=== PATIENT | male | born 1980 | race Caucasian/White ===

== ENCOUNTER 2017-02-05 16:17 | Inpatient (IN) | payer MEDICAID, OTHER ==
[~2017-02-05] VITALS: Ht 172.7 cm; Wt 93.6 kg
[2017-02-05] MEDS ORDERED: SODIUM CHLORIDE 0.9% 1L BAG IV* STA (17:00)
[2017-02-05] MEDS ORDERED: IBUP100T46 PO (17:24)
[2017-02-05 17:35] LABS: ADD SCAN DIFF NO
[2017-02-05 17:37] LABS: BASOPHILS % 0.2 % (0.0-2.0); HEMATOCRIT 47.1 % (42.0-52.0); HEMOGLOBIN 17.1 g/dl (14.0-18.0); LYMPHOCYTES # 1.6 10^3/ul (0.8-2.9); LYMPHOCYTES % 8.7 % (15.0-51.0); MEAN CORPUSCULAR HEMOGLOBIN 32.6 pg (29.0-33.0); MEAN CORPUSCULAR HGB CONC 36.3 g/dl (32.0-37.0); MEAN CORPUSCULAR VOLUME 89.7 fl (82.0-101.0); MEAN PLATELET VOLUME 11.9 fl (7.4-10.4); MONOCYTE # 1.2 10^3/ul (0.3-0.9); MONOCYTES % 6.8 % (0.0-11.0); NEUTROPHIL # 15.3 10^3/ul (1.6-7.5); NEUTROPHILS % 83.7 % (39.0-77.0); PLATELET COUNT 252 10^3/UL (140-415); RED BLOOD COUNT 5.25 10^6/ul (4.70-6.10); RED CELL DISTRIBUTION WIDTH 12.4 % (11.5-14.5); WHITE BLOOD COUNT 18.2 10^3/ul (4.8-10.8)
--- NOTE | 2017-02-05 17:37 | RADRPT ---
PROCEDURE: Chest x-ray CLINICAL INDICATION: Chest pain TECHNIQUE: Chest single view COMPARISON: None FINDINGS: The heart is normal in size. The pulmonary vessels are normal in caliber. The lungs are clear. Th e costophrenic angles are sharp. The visualized bony thorax is unremarkable. IMPRESSION: No acute cardiopulmonary disease. RPTAT: HH .Dennis Dorado MD, Date Time Electronically viewed and signed by .Dennis Dorado MD, MD on 02/05/2017 17:37 .W/
[2017-02-05 17:54] LABS: INR 0.92; PROTIME 12.4 Sec (12.2-14.2)
[2017-02-05 17:55] LABS: PARTIAL THROMBOPLASTIN TIME 26.4 Sec (25.0-35.0)
[2017-02-05 17:57] LABS: ADD UMIC YES; UR BILIRUBIN (Dip) NEGATIVE (NEGATIVE); UR BLOOD (Dip) TRACE (NEGATIVE); UR CLARITY CLEAR (CLEAR); UR COLOR LT. YELLOW (YELLOW); UR GLUCOSE (Dip) NEGATIVE (NEGATIVE); UR KETONES (Dip) NEGATIVE (NEGATIVE); UR LEUKOCYTE ESTERASE (Dip) NEGATIVE (NEGATIVE); UR NITRITE (Dip) NEGATIVE (NEGATIVE); UR TOTAL PROTEIN (Dip) 2+ (NEGATIVE); UR UROBILINOGEN (Dip) 0.2 E.U./dL (0.1-1.0)
--- NOTE | 2017-02-05 18:00 | RADRPT ---
PROCEDURE: CT head CLINICAL INDICATION: Left-sided numbness for 1 year TECHNIQUE: Contiguous 2.5 mm axial images were obtained from the vertex to the skull base. No int ravenous contrast was administered. The calculated dose length product (DLP) = 720.23 mGy-cm. The CTDlvol = 43.58 mGy. One or more of the following dose reduction techniques were used: Automated e xposure control, adjustment of the mA and or KV according to patient size, or use of iterative recon struction technique. COMPARISON: None FINDINGS: There is no acute intracranial hemorrhage or acute territorial infarct. There is a 1.4 x 1.5 cm of low density well-defined lesion in the left suboccipital calvarium with erosion of the inner table a nd thinning and scalloping of the outer table. This likely represents a benign lesion such as a int radiploic epidermoid cyst. Also in the differential there is a eosinophilic granuloma, dermoid cyst , or fibrous dysplasia. Recommend obtaining an MRI with diffusion weighted images which would show the characteristic restricted diffusion and hyperintensity. There is no associated mass effect or e radha. No midline shift is seen. Ventricles and cisterns are normal in size and configuration. Gra y-white matter differentiation is within normal limits. There is air-fluid level in the right maxil shikha sinus. Remaining paranasal sinuses are clear. The bony calvarium is unremarkable. IMPRESSION: 1. 1.4 x 1.5 cm low-attenuation lesion in the left suboccipital calvarium/posterior fossa laterally with erosion of the inner table and scalloping of the outer table. This likely represents a intra diploic epidermoid cyst. Also in the differential is eosinophilic granuloma, hemangioma, dermoid cy st or fibrous dysplasia. This appears to have predominately benign features. Recommend obtaining a n MRI for further characterization. There is no associated mass effect or edema. 2. No other intracranial masses identified. 3. No intracranial hemorrhage or territorial infarct. 4. Air-fluid level within the right maxillary sinus suggesting acute sinusitis RPTAT: HH .Dennis Dorado MD, MD Date Time Electronically viewed and signed by .Dennis Dorado MD, on 02/05/2017 17:59 .W/
[2017-02-05 18:01] LABS: ALBUMIN 5.2 g/dl (3.3-4.9); ALBUMIN/GLOBULIN RATIO 1.4; BILIRUBIN,INDIRECT 0.5 mg/dl (0-1.1); BILIRUBIN,TOTAL 0.5 mg/dl (0.2-1.3); CALCIUM 9.8 mg/dl (8.4-10.2); CREATININE 0.72 mg/dl (0.61-1.24); POTASSIUM 3.5 mmol/L (3.5-5.1); TOTAL PROTEIN 8.9 g/dl (6.1-8.1)
[2017-02-05 18:13] LABS: TROPONIN-I 0.038 ng/ml (0.00-0.12)
[2017-02-05 18:18] LABS: URINE RBCS 0-2 /HPF (0)
[2017-02-05 18:18] LABS: T3 UPTAKE 30.6 % (23.5-40.5)
[2017-02-05] MEDS ORDERED: VANCOMYCIN 1 GM (PMX) 250 ML IVPB SCH (19:00)
[2017-02-05] MEDS ORDERED: CEFTRIAXONE 1 GM/50 ML (PMX) 50 ML IVPB ONE ×2 (19:00)
[2017-02-05] MEDS ORDERED: ONDANSETRON 4 MG INJ IV PRN (19:30)
[2017-02-05] MEDS ORDERED: ACETAMINOPHEN 325 MG TAB PO PRN ×2 (19:30→20:00)
--- NOTE | 2017-02-05 19:55 | HP ---
Date/Time of Note Date/Time of Note DATE: 02/05/17 TIME: 19:51 Assessment/Plan VTE Prophylaxis VTE Prophylaxis Intervention: anti-embolic stocking Assessment/Plan Assessment/Plan 1) SIRS - WBCs = 18 and HR = 119, no source/suspected source of infection (I think there may be something more serious going on here as patient's specific concerns are not serious and have only been present for a day. There may be some things he has not told us.) - Admit to Telemetry - Monitor - Check ESR, CRP and UDS - AM Labs: CBC, BMP - Too early for testing, but Pheochromocytoma should be considered if his BP does not control easily 2) Hypertension - Start CHING I 3) Hyperproteinemia - SPEP to make sure there is not a more serious finding 4) Abnormal Head CT - MRI Brain - Doubt the findings are related to his current symptoms of 1 day - Neuro Consult if any concerns 5) Paresthesias - Monitor for now. Neuro should address this IF they are consulted for abnormal Rad findings. HPI/ROS Admit Date/Time Admit Date/Time 02/05/17 1905 Hx of Present Illness This 36-year-old male, who has not had medical care in 10-15 years, presents with left-sided face and left neck numbness for 1 day. He says that he did not sleep at all last night because he was so bothered by the way he was feeling. During that day, he also had intermittently sweaty palms which would alternate with cold palms and with normal palms. He has also had a headache off and on. He denies vision changes. He denies physical weakness. No slurred speech or droopy eye. He wonders if the pain in his neck is from a job he had 7-10 years ago. He admits to feeling a little bit sad as his family is in [place]. [place]. He has never had anything like this before. He has never been told he has diabetes. He does not know if he has ever had high blood pressure before. He denies chest pain palpitations shortness of breath. He has no history of asthma, bronchitis or pneumonia. He denies swelling in his legs. He denies any nausea,vomiting or diarrhea. Patient states that he is here to get medical care because he has not had any for so long ROS General: Admits: Denies: Fever, Chills, Poor Appetite, Generalized Body Aches Eyes: Admits: Denies: Blurry Vision, Double Vision HENT: Admits: Denies: Ear Pain/Pressure, Runny/Stuffy Nose, Sore Throat Cardiovascular: Admits: Denies: Chest Pain, Palpitations, Leg Swelling Pulmonary: Admits: Denies: Cough, Wheeze, Shortness of Breath Gastrointestinal: Admits: Denies: Abdominal Pain, Nausea, Vomiting, Diarrhea, Blood in Stool, Black-Colored Stool Urogenital: Admits: Mild, chronic pain in left side of neck Denies: Burning with Urination, Urinary Frequency, Blood in Urine Musculoskeletal: Admits: Denies: Joint Pain, Joint Swelling, Muscle Pain, Muscle weakness Neurological: Admits: Headache, Numbness, Tingling, Denies: Dizziness, Shooting Pains Integumentary: Admits: Denies: Rash, Itch Endocrine: Admits: Denies: Excessive Thirst, Excessive Hunger, Intolerant to Cold , Intolerant to Heat Psychiatric: Admits: Depression Denies: Anxiety, PMH/Family/Social Past Medical History No DM Medical History: no pertinent history Past Surgical History LEFT ARM SURGERY Social History Alcohol Use: none Smoking Status: Current every day smoker Drug Use: none Exam/Review of Systems Vital Signs Vitals Vital Signs Date Time Temp Pulse Resp B/P Pulse Ox O2 Delivery O2 Flow Rate FiO2 02/05/17 18:52 91 20 141/99 100 Room Air 02/05/17 16:26 99.7 Exam Exam General: Overweight male, alert and oriented, in no acute distress Eyes: Sclera White, EOMI, a bit bloodshot bilaterally HENT: Normocephalic/Atraumatic, External Ears/Nose Normal, Moist Mucus Membranes Neck: Supple, Trachea Midline Cardiovascular: Normal Rate, Regular Rhythm, Normal S1 and S2, No Murmur, No Extra Sounds. Radial pulse +2/4. No pedal Edema. Pulmonary: Clear to Auscultation Bilaterally, Normal Respiratory Effort, No Rales, Rhonchi or Wheezes Gastrointestinal: Normoactive Bowel Sounds, Soft, Non-Tender/Non-Distended, No Hepatosplenomegaly Appreciated, No Pulsatile Masses Urogenital: Deferred Musculoskeletal: Normal Muscle Bulk and Tone Neurological: CN II - XII Grossly Intact, Non-Focal, Speech Normal. Sensation intact and strength +5/5 bilateral UE, including hand smash fixer. Integumentary: Normal Moisture and Temperature, Good Turgor, No Jaundice, No Rash Lymphatic: No Cervical Lymphadenopathy Psychiatric: Appropriate Mood and Affect, Good Eye Contact Labs Result Diagram: 02/05/17 1701 02/05/17 1701 Medications Medications Current Medications Medications (Trade) Dose Ordered Sig/Yaakov Route PRN Reason Start Time Stop Time Status Last Admin Dose Admin Sodium Chloride 2910 ml 2,910 ml BOLUS OVER 2 HOURS STAT IV* 02/05/17 17:00 02/05/17 17:02 DC 02/05/17 17:32 Ceftriaxone Sodium 50 ml @ 100 mls/hr ONCE ONCE IVPB 02/05/17 19:00 02/05/17 19:29 DC 02/05/17 19:09 Ceftriaxone Sodium 50 ml @ 100 mls/hr ONCE ONCE IVPB 02/05/17 19:00 02/05/17 19:29 DC 02/05/17 18:50 Vancomycin HCl (Vancocin) 250 ml @ 125 mls/hr ONCE IVPB 02/05/17 19:00 02/05/17 20:59 DC 02/05/17 19:46 Ondansetron HCl (Zofran Inj) 4 mg ER BRIDGE PRN IV NAUSEA AND/OR VOMITING 02/05/17 19:30 02/06/17 19:29 Acetaminophen (Tylenol Tab) 650 mg ER BRIDGE PRN PO MILD PAIN/FEVER 02/05/17 19:30 02/05/17 21:36 DC Labetalol HCl 20 mg 20 mg ONCE ONCE IV 02/05/17 20:00 02/05/17 20:01 DC 02/05/17 20:27 Sodium Chloride (NS) 1,000 ml @ 125 mls/hr Q8H IV 02/05/17 19:59 IV Flush (NS 3 ml) 3 ml PER PROTOCOL IV 02/05/17 20:00 Ondansetron HCl (Zofran Tab) 4 mg Q6H PRN PO NAUSEA AND/OR VOMITING 02/05/17 20:00 Nitroglycerin (Nitroglycerin (Sl Tab) 0.4 Mg) 1 tab Q5M PRN SL CHEST PAIN 02/05/17 20:00 Acetaminophen (Tylenol Tab) 650 mg Q6H PRN PO PAIN LEVEL 1-3 OR FEVER 02/05/17 20:00 Acetaminophen/ Hydrocodone Bitart ([place] (5/325)) 1 tab Q6H PRN PO PAIN LEVEL 4-6 02/05/17 20:00 Acetaminophen/ Hydrocodone Bitart ([place] (5/325)) 2 tab Q6H PRN PO PAIN LEVEL 7-10 02/05/17 20:00 Famotidine (Pepcid) 20 mg Q12 PO 02/05/17 21:00 Enoxaparin Sodium (Lovenox) 40 mg DAILY SC 02/06/17 09:00 Procedures Procedures Laboratory Tests Test 02/05/17 17:01 02/05/17 17:10 02/05/17 17:30 02/05/17 19:00 White Blood Count 18.210^3/ul Red Blood Count 5.2510^6/ul Hemoglobin 17.1g/dl Hematocrit 47.1% Mean Corpuscular Volume 89.7fl Mean Corpuscular Hemoglobin 32.6pg Mean Corpuscular Hemoglobin Concent 36.3g/dl Red Cell Distribution Width 12.4% Platelet Count 66102^3/UL Mean Platelet Volume 11.9fl Neutrophils % 83.7% Lymphocytes % 8.7% Monocytes % 6.8% Eosinophils % 0.0% Basophils % 0.2% Nucleated Red Blood Cells % 0.0/100WBC Neutrophils # 15.310^3/ul Lymphocytes # 1.610^3/ul Monocytes # 1.210^3/ul Eosinophils # 0.010^3/ul Basophils # 0.010^3/ul Nucleated Red Blood Cells # 0.010^3/ul Prothrombin Time 12.4Sec Prothrombin Time Ratio 1.0 INR International Normalized Ratio 0.92 Activated Partial Thromboplast Time 26.4Sec Sodium Level 142mmol/L Potassium Level 3.5mmol/L Chloride Level 107mmol/L Carbon Dioxide Level 23mmol/L Anion Gap 16 Blood Urea Nitrogen 10mg/dl Creatinine 0.72mg/dl Glucose Level 128mg/dl Calcium Level 9.8mg/dl Total Bilirubin 0.5mg/dl Direct Bilirubin 0.00mg/dl Indirect Bilirubin 0.5mg/dl Aspartate Amino Transf (AST/SGOT) 32IU/L Alanine Aminotransferase (ALT/SGPT) 72IU/L Alkaline Phosphatase 91IU/L Troponin I 0.038ng/ml Total Protein 8.9g/dl Albumin 5.2g/dl Globulin 3.70g/dl Albumin/Globulin Ratio 1.40 Free Thyroxine Index 2.78ug/ml Thyroxine (T4) 9.1ug/dl Triiodothyronine (T3) Uptake 30.6% Lactic Acid Level 1.4mmol/L 1.0mmol/L Urine Color LT. YELLOW Urine Clarity CLEAR Urine pH 5.5 Urine Specific [place] 1.025 Urine Ketones NEGATIVE Urine Nitrite NEGATIVE Urine Bilirubin NEGATIVE Urine Urobilinogen 0.2 E.U./dL Urine Leukocyte Esterase NEGATIVE Urine Microscopic RBC 0-2/HPF Urine Microscopic WBC 0-2/HPF Urine Hemoglobin TRACE Urine Glucose NEGATIVE% Urine Total Protein 2+ EKG: interpretations per ER Physician EKG interpretation #1: Sinus tachycardia rate of 147, left posterior fascicular block, right axis deviation, Q waves in inferolateral leads suggesting old cardiac injury, no ST or T-wave changes concerning for acute ischemia. EKG interpretation #2: Normal sinus rhythm rate of 93, right axis deviation, Q waves in inferolateral leads, no ST-T wave changes concerning for acute ischemia PROCEDURE: CT head CLINICAL INDICATION: Left-sided numbness for 1 year COMPARISON: None FINDINGS: There is no acute intracranial hemorrhage or acute territorial infarct. There is a 1.4 x 1.5 cm of low density well-defined lesion in the left suboccipital calvarium with erosion of the inner table and thinning and scalloping of the outer table. This likely represents a benign lesion such as a intradiploic epidermoid cyst. Also in the differential there is a eosinophilic granuloma, dermoid cyst, or fibrous dysplasia. Recommend obtaining an MRI with diffusion weighted images which would show the characteristic restricted diffusion and hyperintensity. There is no associated mass effect or edema. No midline shift is seen. Ventricles and cisterns are normal in size and configuration. [place]an- white matter differentiation is within normal limits. There is air-fluid level in the right maxillary sinus. Remaining paranasal sinuses are clear. The bony calvarium is unremarkable. IMPRESSION: 1. 1.4 x 1.5 cm low-attenuation lesion in the left suboccipital calvarium/ posterior fossa laterally with erosion of the inner table and scalloping of the outer table. This likely represents a intradiploic epidermoid cyst. Also in the differential is eosinophilic granuloma, hemangioma, dermoid cyst or fibrous dysplasia. This appears to have predominately benign features. Recommend obtaining an MRI for further characterization. There is no associated mass effect or edema. 2. No other intracranial masses identified. 3. No intracranial hemorrhage or territorial infarct. 4. Air-fluid level within the right maxillary sinus suggesting acute sinusitis PROCEDURE: Chest x-ray CLINICAL INDICATION: Chest pain TECHNIQUE: Chest single view COMPARISON: None FINDINGS: The heart is normal in size. The pulmonary vessels are normal in caliber. The lungs are clear. The costophrenic angles are sharp. The visualized bony thorax is unremarkable. IMPRESSION: No acute cardiopulmonary disease. KESHA THOMPSON DO Feb 05, 2017 19:55 PROCEDURE: Chest x-ray CLINICAL INDICATION: Chest pain TECHNIQUE: Chest single view COMPARISON: None FINDINGS: The heart is normal in size. The pulmonary vessels are normal in caliber. The lungs are clear. The costophrenic angles are sharp. The visualized bony thorax is unremarkable.
[2017-02-05] MEDS ORDERED: HYDROCODONE/APAP (5/325) TAB PO PRN ×2 (20:00)
[2017-02-05] MEDS ORDERED: ONDANSETRON 4 MG TAB PO PRN (20:00)
[2017-02-05] MEDS ORDERED: NACL 0.9% 3 ML SYG IV SCH (20:00)
[2017-02-05] MEDS ORDERED: LABETALOL HCL 20MG INJ IV ONE (20:00)
[2017-02-05] MEDS ORDERED: NITROGLYCERIN (SL) 0.4 MG TAB SL PRN (20:00)
--- NOTE | 2017-02-05 21:30 | ERA ---
ER Documentation Chief Complaint Date/Time DATE: 02/05/17 TIME: 21:26 Chief Complaint left facial numbness x 1 year, no new symptoms, no neuro deficits HPI 36-year-old male presents emergency room for left face and neck numbness for a year. Also states that he has chest pain along his left chest. Outside fevers and chills lately. Smarting he was sweating profusely and felt ill. He has not seen a doctor for greater than a decade. He was in [facility] years ago he did have some minor surgery for a stone that was on one side of his neck. He does not remember if this was a salivary duct stone and does not murmur which side of the neck it was on. He denies dysuria. States he has occasional cough ROS All systems reviewed and are negative except as per history of present illness. Medications Home Meds Reported Medications Ibuprofen* (Ibuprofen*) 100 Mg Tab.chew, 200 MG PO Q6 for PAIN, TAB.CHEW 02/05/17 Allergies Allergies: Coded Allergies: No Known Allergy (Unverified , 02/05/17) PMhx/Soc Medical and Surgical Hx: pt denies Medical Hx History of Surgery: Yes (LEFT ARM SURGERY) Anesthesia Reaction: No Hx Neurological Disorder: No Hx Respiratory Disorders: No Hx Cardiac Disorders: No Hx Psychiatric Problems: No Hx Miscellaneous Medical Probl: No Hx Alcohol Use: No Hx Substance Use: No Hx Tobacco Use: No Smoking Status: Unknown if ever smoked Physical Exam Vitals Vital Signs Date Time Temp Pulse Resp B/P Pulse Ox O2 Delivery O2 Flow Rate FiO2 02/05/17 18:52 91 20 141/99 100 Room Air 02/05/17 16:26 99.7 119 20 181/96 99 Physical Exam Const: [] Mild- distress, appears uncomfortable Head: Atraumatic Eyes: Normal Conjunctiva ENT: Normal External Ears, Nose and Mouth. Oropharynx within normal limits, to better membranes within normal limits. Mucous membranes of the mouth slightly dry. Neck: Full range of motion..~ No meningismus. Resp: Clear to auscultation bilaterally Cardio: [place] tachycardia, regular,, no murmurs Abd: Soft, non tender, non distended. Normal bowel sounds Skin: No petechiae or rashes Back: No midline or flank tenderness Ext: No cyanosis, or edema Neur: Awake and alert and oriented 3, cranial nerves II through XII intact, no cerebellar deficits, normal gait, sensation intact to left face and neck and affected area however says it feels different than the right. Psych: Normal Mood and Affect Result Diagram: 02/05/17 1701 02/05/17 1701 Results 24 hrs Laboratory Tests Test 02/05/17 17:01 02/05/17 17:10 02/05/17 17:30 02/05/17 19:00 White Blood Count 18.210^3/ul Red Blood Count 5.2510^6/ul Hemoglobin 17.1g/dl Hematocrit 47.1% Mean Corpuscular Volume 89.7fl Mean Corpuscular Hemoglobin 32.6pg Mean Corpuscular Hemoglobin Concent 36.3g/dl Red Cell Distribution Width 12.4% Platelet Count 27212^3/UL Mean Platelet Volume 11.9fl Neutrophils % 83.7% Lymphocytes % 8.7% Monocytes % 6.8% Eosinophils % 0.0% Basophils % 0.2% Nucleated Red Blood Cells % 0.0/100WBC Neutrophils # 15.310^3/ul Lymphocytes # 1.610^3/ul Monocytes # 1.210^3/ul Eosinophils # 0.010^3/ul Basophils # 0.010^3/ul Nucleated Red Blood Cells # 0.010^3/ul Prothrombin Time 12.4Sec Prothrombin Time Ratio 1.0 INR International Normalized Ratio 0.92 Activated Partial Thromboplast Time 26.4Sec Sodium Level 142mmol/L Potassium Level 3.5mmol/L Chloride Level 107mmol/L Carbon Dioxide Level 23mmol/L Anion Gap 16 Blood Urea Nitrogen 10mg/dl Creatinine 0.72mg/dl Glucose Level 128mg/dl Calcium Level 9.8mg/dl Total Bilirubin 0.5mg/dl Direct Bilirubin 0.00mg/dl Indirect Bilirubin 0.5mg/dl Aspartate Amino Transf (AST/SGOT) 32IU/L Alanine Aminotransferase (ALT/SGPT) 72IU/L Alkaline Phosphatase 91IU/L Troponin I 0.038ng/ml Total Protein 8.9g/dl Albumin 5.2g/dl Globulin 3.70g/dl Albumin/Globulin Ratio 1.40 Free Thyroxine Index 2.78ug/ml Thyroxine (T4) 9.1ug/dl Triiodothyronine (T3) Uptake 30.6% Lactic Acid Level 1.4mmol/L 1.0mmol/L Urine Color LT. YELLOW Urine Clarity CLEAR Urine pH 5.5 Urine Specific [place] 1.025 Urine Ketones NEGATIVE Urine Nitrite NEGATIVE Urine Bilirubin NEGATIVE Urine Urobilinogen 0.2 E.U./dL Urine Leukocyte Esterase NEGATIVE Urine Microscopic RBC 0-2/HPF Urine Microscopic WBC 0-2/HPF Urine Hemoglobin TRACE Urine Glucose NEGATIVE% Urine Total Protein 2+ Current Medications Medications (Trade) Dose Ordered Sig/Yaakov Route PRN Reason Start Time Stop Time Status Last Admin Dose Admin Sodium Chloride 2910 ml 2,910 ml BOLUS OVER 2 HOURS STAT IV* 02/05/17 17:00 02/05/17 17:02 DC 02/05/17 17:32 Ceftriaxone Sodium 50 ml @ 100 mls/hr ONCE ONCE IVPB 02/05/17 19:00 02/05/17 19:29 DC 02/05/17 19:09 Ceftriaxone Sodium 50 ml @ 100 mls/hr ONCE ONCE IVPB 02/05/17 19:00 02/05/17 19:29 DC 02/05/17 18:50 Vancomycin HCl (Vancocin) 250 ml @ 125 mls/hr ONCE IVPB 02/05/17 19:00 02/05/17 20:59 DC 02/05/17 19:46 Ondansetron HCl (Zofran Inj) 4 mg ER BRIDGE PRN IV NAUSEA AND/OR VOMITING 02/05/17 19:30 02/06/17 19:29 Acetaminophen (Tylenol Tab) 650 mg ER BRIDGE PRN PO MILD PAIN/FEVER 02/05/17 19:30 02/05/17 21:36 DC Labetalol HCl 20 mg 20 mg ONCE ONCE IV 02/05/17 20:00 02/05/17 20:01 DC 02/05/17 20:27 Sodium Chloride (NS) 1,000 ml @ 125 mls/hr Q8H IV 02/05/17 19:59 IV Flush (NS 3 ml) 3 ml PER PROTOCOL IV 02/05/17 20:00 Ondansetron HCl (Zofran Tab) 4 mg Q6H PRN PO NAUSEA AND/OR VOMITING 02/05/17 20:00 Nitroglycerin (Nitroglycerin (Sl Tab) 0.4 Mg) 1 tab Q5M PRN SL CHEST PAIN 02/05/17 20:00 Acetaminophen (Tylenol Tab) 650 mg Q6H PRN PO PAIN LEVEL 1-3 OR FEVER 02/05/17 20:00 Acetaminophen/ Hydrocodone Bitart ([place] (5/325)) 1 tab Q6H PRN PO PAIN LEVEL 4-6 02/05/17 20:00 Acetaminophen/ Hydrocodone Bitart ([place] (5/325)) 2 tab Q6H PRN PO PAIN LEVEL 7-10 02/05/17 20:00 Famotidine (Pepcid) 20 mg Q12 PO 02/05/17 21:00 Enoxaparin Sodium (Lovenox) 40 mg DAILY SC 02/06/17 09:00 Procedures/MDM Sepsis of unknown origin and chest pain as well as newly discovered brain lesion.. Patient initially had a heart rate approaching 150. Was given 30 mL/ kg of IV fluid and septic workup was performed showing elevated white blood cell count of 18.2. Patient reported having fevers and chills lately with sweats this morning. Also had occasional cough but denies any hemoptysis. Also reports facial numbness times one year. He states that almost all of his symptoms been going on for a full year. He does not know of any cardiac events he is her head however is inferolateral Q waves suggesting he has had myocardial injury in the past. Chest pain with no acute findings of ischemia. Patient was given Rocephin 2 g as well as aspirin. His also given vancomycin. Meningitis seems less likely am unable to perform a lumbar puncture because of patient's new brain tumor. I spoke with Dr. Singh, neurosurgery, regarding the CT findings of her brain lesion. He believes benign and not actually a cerebral lesion but for further evaluation. Spoke with Dr. Olvera who is going to admit the patient to telemetry for further monitoring and workup. EKG interpretation #1: Sinus tachycardia rate of 147, left posterior fascicular block, right axis deviation, Q waves in inferolateral leads suggesting old cardiac injury, no ST or T-wave changes concerning for acute ischemia. EKG interpretation #2: Normal sinus rhythm rate of 93, right axis deviation, Q waves in inferolateral leads, no ST-T wave changes concerning for acute ischemia monitoring analyst interpretation: Initial sinus tachycardia gradually transition to normal sinus rhythm. No other arrhythmias Chest x-ray interpretation: No acute process, I see no infiltrates, no pneumothorax, no widened mediastinum, no pulmonary edema, no fractures CT brain interpretation: No acute process, no hemorrhage no mass effect no midline shift no skull fracture. There is present today small left suboccipital lesion with a most likely benign appearance according to radiologist. Critical care time 36 minutes: This includes treatment of patient with likely sepsis, regimen unstable vital signs, antibiotic administration, chart review, multiple visits the patient's bedside to reassess his cardio dynamic status and neuro status, discussion with patient admitting doctor and neurosurgeon, this is not including any billable procedures. Departure Diagnosis: Primary Impression: Sepsis Additional Impressions: Dehydration Brain lesion Chest pain Condition: Serious ANGELICA ROLAND DO Feb 05, 2017 21:30
[2017-02-05] MEDS ORDERED: ASPIRIN 325 MG TAB PO ONE (22:00)
[2017-02-05 23:25] VITALS: TEMP 98.6
--- NOTE | 2017-02-05 23:36 | RADRPT ---
PROCEDURE: MRI Brain with and without contrast. CLINICAL INDICATION: : Follow-up left calvarial lesion TECHNIQUE: A limited "brain lab " MRI of the brain was performed on a high-resolution [employer] n 3.0 [place] MRI scanner utilizing the following sequences: Axial T1 fat and pre and postcontrast radha ging through the entire brain is performed after 10 cc of Magnevist were given intravenously withou t complication. COMPARISON: CT brain 02/05/2017 FINDINGS: Again noted is the left expansile calvarial lesion at the left occipital mastoid suture which measur es approximately 1.9 cm AP by 1.5 cm in transverse dimensions. No evidence for appreciable enhancem ent is noted following contrast administration. In addition to the differential previously describe d on CT in giant arachnoid granulation is another consideration and dedicated complete MR imaging wi th diffusion weighted sequences contrast is recommended. The visualized imaged portions of the scalp and calvarium are otherwise normal. The bilateral orbit s are normal. The bilateral paranasal sinuses demonstrate mild chronic mucosal thickening of the bi lateral ethmoid and maxillary sinuses. The air-fluid levels in the right maxillary sinus are is nor mal. No evidence for signal abnormalities are noted in the brain parenchyma. No midline shift or h erniation is present. IMPRESSION: 1. Left occipital mastoid non-enhancing calvarial lesion measuring 1.9 cm AP by 1.5 cm in transvers e dimensions. Differential diagnosis includes a giant arachnoid granulation and recommend dedicated complete MRI with diffusion and contrast imaging and MR venogram to further evaluate. 2. Acute right maxillary sinus disease superimposed on chronic pansinusitis A call report was made to Hammad Nuñez at 02/05/2017 11:35:46 PM following the completion of the ex amination by the undersigned. RPTAT: HDC .Caty Jaimes MD, MD Date Time Electronically viewed and signed by .Caty Jaimes MD, MD on 02/05/2017 23:36 .C/
[2017-02-05 23:45] VITALS: BP 174/104; PULSE 67; RESP 18
[2017-02-05 23:51] VITALS: Ht 172.7 cm; Wt 93.6 kg
[2017-02-06] VITALS (11 sets, daily range): BP systolic 120–161; BP diastolic 71–105; PULSE 59–83; RESP 16–20
[2017-02-06] MEDS: FAMOTIDINE 20 MG TAB PO SCH ×3 (00:43→20:05)
[2017-02-06] MEDS: SOD CHLORIDE 0.9% 1,000 ML IV SCH ×4 (00:44→20:05)
[2017-02-06 06:06] LABS: ADD SCAN DIFF NO
[2017-02-06 06:38] LABS: CALCIUM 8.9 mg/dl (8.4-10.2); CHOL/HDL RATIO 5.8 RATIO; CREATININE 0.63 mg/dl (0.61-1.24); POTASSIUM 3.8 mmol/L (3.5-5.1)
[2017-02-06] MEDS: ENOXAPARIN 40 MG/0.4 ML SYG SC SCH (08:25)
[2017-02-06] MEDS ORDERED: LISINOPRIL 20 MG TAB PO SCH (09:00)
--- NOTE | 2017-02-06 09:35 | RADRPT ---
Vent Rate: 60 bpm RR Interval: 0 msec OR Interval: 128 msec QRS Duration: 90 msec QT Interval: 450 msec QTC Interval: 450 msec P-R-T [place]: 57 - 70 - 55 degrees Normal sinus rhythm Normal ECG Electronically Signed By: Pola Addison [id number]
[2017-02-06 11:44] LABS: BASOPHIL # 0.1 10^3/ul (0.0-0.1); BASOPHILS % 0.5 % (0.0-2.0); EOSINOPHILS # 0.2 10^3/ul (0.0-0.5); EOSINOPHILS % 1.5 % (0.0-7.0); HEMATOCRIT 42.7 % (42.0-52.0); HEMOGLOBIN 14.5 g/dl (14.0-18.0); LYMPHOCYTES # 2.5 10^3/ul (0.8-2.9); LYMPHOCYTES % 23.2 % (15.0-51.0); MEAN CORPUSCULAR HEMOGLOBIN 32.2 pg (29.0-33.0); MEAN CORPUSCULAR VOLUME 94.7 fl (82.0-101.0); MEAN PLATELET VOLUME 12.8 fl (7.4-10.4); MONOCYTE # 0.8 10^3/ul (0.3-0.9); MONOCYTES % 7.5 % (0.0-11.0); NEUTROPHILS % 66.8 % (39.0-77.0); PLATELET COUNT 220 10^3/UL (140-415); RED BLOOD COUNT 4.51 10^6/ul (4.70-6.10); WHITE BLOOD COUNT 10.5 10^3/ul (4.8-10.8)
--- NOTE | 2017-02-06 11:50 | PN ---
Date/Time of Note Date/Time of Note DATE: 02/06/17 TIME: 11:45 Assessment/Plan VTE Prophylaxis VTE Prophylaxis Intervention: SCD's Lines/Catheters IV Catheter Type (from Nrs): Peripheral IV Urinary Cath still in place: No Assessment/Plan Assessment/Plan 1. SIRS - ? source, ? Sinusitis 2. Uncontrolled Hypertension: mildly improved 3. Chest pain r/o ACS 4. Brain mass - Left occipital mastoid non-enhancing calvarial lesion measuring 1.9 cm by 1.5 cm 5. Paresthesias 6. Hyperproteinemia PLAN: * Complete ACS r/o and f/u 2D echo * Increase dose of lisinopril and add 2nd agent if indicated * Commence oral abx for treatment of sinusitis and f/u WBC count today * f/u MRI venogram findings and neurosurgical final recs * Await neurology recs and review * Supportive care Subjective 24 Hr Interval Summary Free Text/Dictation patient feels better no more headaches or chest pains or paresthesias Exam/Review of Systems Vital Signs Vitals Vital Signs Date Time Temp Pulse Resp B/P Pulse Ox O2 Delivery O2 Flow Rate FiO2 02/06/17 11:07 98.0 65 16 153/94 96 02/05/17 23:45 Room Air Intake and Output 02/05/17 02/05/17 02/06/17 15:00 23:00 07:00 Intake Total 2350 ml 1000 ml Balance 2350 ml 1000 ml Exam Constitutional: alert, oriented Psych: nl mood/affect Head: atraumatic, normocephalic Eyes: PERRL ENMT: mucosa pink and moist Neck: supple Respiratory: clear to auscultation Cardiovascular: regular rate and rhythm, No murmurs/extra sounds Gastrointestinal: bowel sounds, non-tender, soft Extremities: No edema Neurological: nl mental status, nl speech, nl strength, No confused, No focal weakness Results Result Diagram: 02/05/17 1701 02/06/17 0530 Results 24 hrs Laboratory Tests Test 02/05/17 17:01 02/05/17 17:10 02/05/17 17:30 02/05/17 19:00 White Blood Count 18.2 H Red Blood Count 5.25 Hemoglobin 17.1 Hematocrit 47.1 Mean Corpuscular Volume 89.7 Mean Corpuscular Hemoglobin 32.6 Mean Corpuscular Hemoglobin Concent 36.3 Red Cell Distribution Width 12.4 Platelet Count 252 Mean Platelet Volume 11.9 H Neutrophils % 83.7 H Lymphocytes % 8.7 L Monocytes % 6.8 Eosinophils % 0.0 Basophils % 0.2 Nucleated Red Blood Cells % 0.0 Neutrophils # 15.3 H Lymphocytes # 1.6 Monocytes # 1.2 H Eosinophils # 0.0 Basophils # 0.0 Nucleated Red Blood Cells # 0.0 Prothrombin Time 12.4 Prothrombin Time Ratio 1.0 INR International Normalized Ratio 0.92 Activated Partial Thromboplast Time 26.4 Sodium Level 142 Potassium Level 3.5 Chloride Level 107 Carbon Dioxide Level 23 Anion Gap 16 Blood Urea Nitrogen 10 Creatinine 0.72 Glucose Level 128 Calcium Level 9.8 Total Bilirubin 0.5 Direct Bilirubin 0.00 Indirect Bilirubin 0.5 Aspartate Amino Transf (AST/SGOT) 32 Alanine Aminotransferase (ALT/SGPT) 72 H Alkaline Phosphatase 91 Troponin I 0.038 Total Protein 8.9 H Albumin 5.2 H Globulin 3.70 H Albumin/Globulin Ratio 1.40 Free Thyroxine Index 2.78 Thyroxine (T4) 9.1 Triiodothyronine (T3) Uptake 30.6 Lactic Acid Level 1.4 1.0 Urine Color LT. YELLOW Urine Clarity CLEAR Urine pH 5.5 Urine Specific [place] 1.025 Urine Ketones NEGATIVE Urine Nitrite NEGATIVE Urine Bilirubin NEGATIVE Urine Urobilinogen 0.2 E.U./dL Urine Leukocyte Esterase NEGATIVE Urine Microscopic RBC 0-2 Urine Microscopic WBC 0-2 Urine Hemoglobin TRACE Urine Glucose NEGATIVE Urine Total Protein 2+ H Thyroid Stimulating Hormone (TSH) 1.900 Test 02/05/17 21:30 02/06/17 05:30 Lactic Acid Level 1.1 Sodium Level 140 Potassium Level 3.8 Chloride Level 111 H Carbon Dioxide Level 25 Anion Gap 8 # Blood Urea Nitrogen 8 Creatinine 0.63 Glucose Level 108 Calcium Level 8.9 Triglycerides Level 84 Cholesterol Level 180 LDL Cholesterol, Calculated 132 HDL Cholesterol 31 Cholesterol/HDL Ratio 5.8 Medications Medications Current Medications Sodium Chloride (NS) 1,000 ml @ 125 mls/hr Q8H IV Last administered on t 05:32; Admin Dose 125 MLS/HR; Start 02/05/17 at 19:59 Ondansetron HCl (Zofran Tab) 4 mg Q6H PRN PO NAUSEA AND/OR VOMITING; Start at 20:00 Nitroglycerin (Nitroglycerin (Sl Tab) 0.4 Mg) 1 tab Q5M PRN SL CHEST PAIN; Start 02/05/17 at 20:00 Acetaminophen (Tylenol Tab) 650 mg Q6H PRN PO PAIN LEVEL 1-3 OR FEVER; Start at 20:00 Acetaminophen/ Hydrocodone Bitart ([place] (5/325)) 1 tab Q6H PRN PO PAIN LEVEL 4 -6; Start 02/05/17 at 20:00 Acetaminophen/ Hydrocodone Bitart ([place] (5/325)) 2 tab Q6H PRN PO PAIN LEVEL 7 -10; Start 02/05/17 at 20:00 Famotidine (Pepcid) 20 mg Q12 PO Last administered on 02/06/17 08:23; Admin Dose 20 MG; Start 02/05/17 at 21:00 Enoxaparin Sodium (Lovenox) 40 mg DAILY SC Last administered on 02/06/17 08:25 ; Admin Dose 40 MG; Start 02/06/17 at 09:00 Lisinopril (Zestril) 20 mg DAILY PO Last administered on 02/06/17 08:23; Admin Dose 20 MG; Start 02/06/17 at 09:00 Aspirin (Halfprin) 81 mg DAILY PO ; Start 02/06/17 at 12:00; Status TATA ROMO Feb 06, 2017 11:50
[2017-02-06] MEDS ORDERED: LISINOPRIL 20 MG TAB PO ONE (12:00)
[2017-02-06] MEDS: ASPIRIN (EC) 81 MG TAB PO SCH (13:02)
[2017-02-06] MEDS: AMOXICILLIN/CLAV 875 MG TAB PO SCH ×2 (13:54→20:04)
[2017-02-06 14:38] LABS: TROPONIN-I 0.012 ng/ml (0.00-0.12)
[2017-02-06 14:46] LABS: CREATINE KINASE 192 IU/L (23-200)
[2017-02-06 14:53] LABS: CK-MB 3.05 ng/ml (0.0-2.4)
[2017-02-06 15:02] LABS: CK-MB 2.39 ng/ml (0.0-2.4); TROPONIN-I < 0.012 ng/ml (0.00-0.12)
--- NOTE | 2017-02-06 17:42 | RADRPT ---
PROCEDURE: MR Brain without contrast. CLINICAL INDICATION: 36-year-old male with mass lesion in the left temporal region. TECHNIQUE: An MRI of the brain was performed without utilizing the following sequences: Sagittal T1 weighted, sagittal FLAIR, axial T1, axial FLAIR, axial T2 weighted, axial diffusion weighted, axi al ADC mapping. Images were reviewed on a PACS workstation. COMPARISON: No prior studies are available for comparison. FINDINGS: Diffusion weighted sequences demonstrate no evidence of acute lacunar or lobar infarction. There is redemonstration of the well-circumscribed lesion in the rest of the portion of the left temporal lo be measuring 1.9 X 1.7 cm. There is T2 hyperintensity, with isointense FLAIR / T1 signal. The diff usion weighted sequences, there is no diffusion restriction within the mass lesion. The underlying brain parenchyma is normal. There is no significant edema in the adjacent temporal/occipital bones. There is no intracranial hemorrhage, extra-axial fluid collection, mass lesion, midline shift or hy drocephalous. The cerebral sulci, lateral and third ventricles are normal in size and configuration . The basal cisterns are patent. The signal intensity is normal throughout the cerebrum, brain stem and cerebellum. Normal flow voids are visible the proximal intracranial arteries and dural sinuses , indicating patency. The midline structures are intact. There are moderate inflammatory changes of the bilateral ethmoid air cells and right maxillary sinus . The mastoid air cells and middle ear cavities are normally aerated. The orbits, calvarium and ex tracranial soft tissues are normal in appearance. The cerebellopontine angles are normal. No eviden ce of internal acoustic canal or cerebellopontine angle mass. IMPRESSION: 1. 1.9 x 1.7 cm diffusion restricting, fluid signal intensity, nonenhancing lesion involving the lef t mastoid portion of the temporal bone. On the prior CT examination on 02/05/2017 this demonstrated well-circumscribed, sclerotic margins with location adjacent to the lambdoid suture in this region. 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 No malignant characteristics at this time. Short interval follow-up would be helpful to confirm stability. 2. No acute intracranial abnormality. No intracranial hemorrhage, enhancing mass lesion, infarctio n or hydrocephalous. 3. Moderate inflammatory changes of the paranasal sinuses. RPTAT: HGAS .Jose Enrique Vinson MD, MD Date Time Electronically viewed and signed by .Jose Enrique Vinson MD, MD on 02/06/2017 17:42 .S/
[2017-02-06 20:37] LABS: BARBITURATES Negative (NEGATIVE); BENZODIAZEPINES Negative (NEGATIVE); COCAINE Negative (NEGATIVE); OPIATES Negative (NEGATIVE)
[2017-02-06 20:41] LABS: CANNABINOIDS Positive (NEGATIVE)
[2017-02-07] VITALS (7 sets, daily range): BP systolic 116–129; BP diastolic 83–89; PULSE 52–73; RESP 20
[2017-02-07] MEDS: SOD CHLORIDE 0.9% 1,000 ML IV SCH ×2 (02:48→11:59)
[2017-02-07 04:48] LABS: PROTEIN, TOTAL 6.2 g/dL (6.1-8.1)
[2017-02-07] MEDS ORDERED: LISINOPRIL 20 MG TAB PO SCH (09:00)
[2017-02-07] MEDS: FAMOTIDINE 20 MG TAB PO SCH (09:20)
[2017-02-07] MEDS: ASPIRIN (EC) 81 MG TAB PO SCH (09:20)
[2017-02-07] MEDS: AMOXICILLIN/CLAV 875 MG TAB PO SCH (09:20)
[2017-02-07] MEDS: ENOXAPARIN 40 MG/0.4 ML SYG SC SCH (09:24)
[2017-02-07] MEDS ORDERED: ASPI-664 PO (10:53)
[2017-02-07] MEDS ORDERED: AMOX1TAB10 PO (10:53)
[2017-02-07] MEDS ORDERED: LISI20TA11 PO (10:53)
--- NOTE | 2017-02-07 12:25 | PDOCDIS ---
Discharge Instructions DIAGNOSIS Discharge Diagnosis: brain mass, SIRS CONDITION Patient Condition: Stable HOME CARE INSTRUCTIONS: Special Diet: regular ACTIVITY: Activity Restrictions: Slowly Increase Activity Rest between Activity FOLLOW UP/APPOINTMENTS Appointments Followup with your primary doctor within the next 1-2 weeks. You need serial CTS to ensure your barin mass is not increasing in size, please have your primary doctor arrange this. If you don't have one please let someone know, we can give you resources that may help you pick one. You may call Dr Ivan Antonio's office. he's accepting new patients Name, Degree: Ivan Antonio MD Specialty: Internal Medicine Comments: Office Address: [address] [place] [address] [place] [address] Office Office You may also call your insurance company to assign one to you. Review your medication list with your nurse before leaving and if you need new prescriptions please let your nurse know. I may have made changes to your home medications or given you new prescriptions , please let your primary doctor know as well. Stay compliant with your medications and report any side effects to your PCP or pharmacist. Return to the ER if you have any concerns and cannot reach your doctors or call your insurance company, they usually have a nurse that can help you. OTHER ORDERS: Other Orders: Please stop smoking. If you have already stopped, Good for you!!!. It is however an ongoing process. If you need help or resources, please let someone know before you leave. We are here to help you. It has been associated with a lot of disease processes and is not favorable for healing. SCHOOL/WORK RELEASE May return to School/Work on: Feb 08, 2017 May return to School/Work with: No Restrictions School/Work Release Comment: Please excuse patient from work from 02/05/17 till 02/08/17. Thanks! TATA MARTÍNEZ Feb 07, 2017 12:25
--- NOTE | 2017-02-07 12:56 | CONS ---
Date/Time of Note Date/Time of Note DATE: 02/07/17 TIME: 12:53 Assessment/Plan Assessment/Plan Additional Assessment/Plan Full neuroloy consulation dictated TIA likely secondary to amphetamines, please obtain carotid US, OK to d/c home then. Also Ill start lipitor, cont ASA, lisinopril ADEOLA STRANGE MD Feb 07, 2017 12:56
--- NOTE | 2017-02-07 13:44 | CONS ---
DATE OF ADMISSION: 02/05/2017 DATE OF CONSULTATION: TYPE OF CONSULTATION: Neurology Thank you, Dr. Roach, for your kind referral for evaluation of transient left-sided numbness as well a s calvarium mass. HISTORY OF PRESENT ILLNESS: The patient is a 36-year-old gentleman who was admitted the day before yesterday with complaints of left facial numbness, numbness in the part of the occipital scalp, neck , and a small area underarm. He stated that he was also having some chest pain and discomfort. He was complaining of fevers and chills lately and felt ill. His numbness lasted less than 1 day. He had CAT scan of the head followed by MRI with and without contrast, which shows absence of acute abn ormality, no strokes, but a small about 1.9 x 1.7 cm fluid signal intensity nonenhancing lesion in t he left mastoid portion of the temporal bone, most suggestive benign epidermoid cyst with no maligna nt characteristics at this time according to the radiologist's report. Short interval followup woul d be helpful to confirm stability according to the note. Chest x-ray was normal. He had EKG showin g sinus rhythm. Labs show normal basic metabolic panel, total protein 8.9, albumin 5.2, BUN 10, cre atinine 0.72. Serum protein electrophoresis was also sent out, but not back yet. Normal TSH. WBC count on admission 18, but next day was 10. Normal PT, PTT. His tox screen was positive for amphet amines and marijuana. Urinalysis 2+ protein, otherwise negative. Blood and urine cultures are negative so far. He was put on Zestril and Augmentin as well as aspiri n and Pepcid. MEDICATIONS: No medications prior to admission ALLERGIES: NONE. SOCIAL HISTORY: Every day smoker, also smokes marijuana. Denied any other drug use. When confront ed with drug screen result, the patient stated that probably he was using the wrong pipe but regular ly he does not use amphetamines. FAMILY HISTORY: Noncontributory. REVIEW OF SYSTEMS: All pertinent positives included in the above history of present illness. No co mplaints currently. PHYSICAL EXAMINATION: VITAL SIGNS: Today, temperature 98.0, pulse 73, respirations 20, blood pressure 129/84. GENERAL: Not in acute distress, lying in bed. HEENT: Normocephalic, atraumatic head. NECK: No carotid bruits. No thyromegaly. LUNGS: Clear to auscultation bilaterally. CARDIAC: Normal cardiac rhythm and sounds. ABDOMEN: Soft, nontender. EXTREMITIES: No cyanosis, clubbing or edema. NEUROLOGIC: He is awake, alert, and oriented x3 with fluent speech. Cranial nerve examination show s intact visual kennedy bilaterally. Pupils round, reactive to light from 4 to 2 mm bilaterally. Ex traocular movements intact without nystagmus. Symmetrical face. Preserved facial strength and sens ation. Tongue is in midline. Palate elevates symmetrically. Motor strength examination preserved in all extremities. Normal bulk, tone, and strength. Sensory examination intact to light touch and pain. Deep tendon reflexes 2+ throughout. Downgoing toes bilaterally with preserved coordination in all extremities. No dysmetria or tremor. Gait was not assessed. According to the patient, he h as no problems ambulating. IMPRESSION: Transient left facial and neck numbness, resolved. Etiology ? possible transient ische fide attack, likely relates to use of amphetamines. The patient was advised on cessation. He was al so diagnosed with hypertension and put on antihypertensive medication as well as baby aspirin, it is okay to continue. Incidental findings of mastoid portion of the left temporal bone epidermoid cyst. Per radiologist's suggestion, followup CAT scan to evaluate stability recommended. Probably it is reasonable to obta in within 2 to 3 months. The patient presented with possible systemic inflammatory response syndrom e with elevated WBC count and tachycardia, which seemed to resolve on antibiotics. I do not see jitendra t he had carotid ultrasound. I think it is reasonable to obtain prior to his discharge, though I do ubt that he has any abnormality given his age. Also, I forgot to mention that lipid profile shows cholesterol 180, LDL 132. I will put the patient on a small dose of Lipitor as well. It is okay fo r patient to be discharged home. Dictated By: ADEOLA MEDRANO/TAL Conf#: [id number] DID#: [id number]
--- NOTE | 2017-02-07 18:18 | CONS ---
DATE OF ADMISSION: 02/05/2017 DATE OF CONSULTATION: 02/06/2017 CONSULTING SERVICE: Neurosurgery REQUESTING PHYSICIAN: Dr. Ozzy Mirza with the emergency department and Dr. Missy Olvera. HISTORY OF PRESENT ILLNESS: This is a 36-year-old male in overall good health, who presented to the emergency department with a 1-day history of left-sided facial pain and transient numbness and havi ng some soreness over the left lateral part of his neck and the trapezius, scalene and pectoralis ar ea. The patient describes the pain by the pectoralis area as more being that of soreness rather jitendra n electric pain or pressure. The patient denies any loss of consciousness or convulsions. He also denies any decreased vision or diplopia. He denies any weakness or numbness of his upper or lower e xtremities. He denies any difficulty with his gait or balance. He denies bowel or bladder dysfunct ion. The patient at the time of presentation had some routine labs that showed elevated white blood cell count and it appears that as part of his workup for his new onset left facial pain, a CT of th e head was ordered that showed a possible osteolytic skull lesion and neurosurgery was being consult ed for that. PAST MEDICAL HISTORY: None. The patient has not even seen a doctor for the past 10 to 15 years. PAST SURGICAL HISTORY: Left arm surgery. FAMILY HISTORY: Noncontributory. SOCIAL HISTORY: The patient denies consuming alcoholic beverages or use of illicit or recreational drugs. He says that he smokes cigarettes every day for the past number of years ALLERGIES: NO KNOWN DRUG ALLERGIES. REVIEW OF SYSTEMS: Please see above. The patient denies chest pain or shortness of breath. PHYSICAL EXAMINATION: The patient is seen at bedside. He is more comfortable speaking Macedonian, alt toño he can say and understand some [place]ian. He is awake, alert, oriented x4. His language is flu ent. His face is symmetric. Tongue is midline. Extraocular movements are intact. Pupils are equa lly round and reactive to light. Corneal reflex is present bilaterally. The patient has full sensa tion along the V1, V2 and V3 distributions bilaterally. There is no dysmetria. Muscle bulk and tone is normal bilateral upper and lower extremities. Sensation to light touch is grossly preserved vamshi ateral upper and lower extremities. Deep tendon reflexes are 1+ bilateral upper and lower extremiti es. Motor strength is 5/5 bilateral upper and lower extremities. The patient's gait and tandem gai t is normal. IMAGING: The patient has received CT of the head without contrast as well as a stereotactic series MRI that only includes the T1 with and without contrast. There is no T2 or diffusion-weighted imagi ng sequences noted. The imaging studies show a small area of the osteolytic lesion in the left retr omastoid area by the posterior fossa. The MRI shows a small rounded, well-circumscribed, nonenhanci ng mass in the same area of the osteolytic lesion by the left retromastoid area that appears to be e xtradural in nature. I spoke with Dr. 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 At her recommendation, I will be ordering an MRI of the brain without contrast to include the full range of sequences inclu ding T2 as well as diffusion-weighted imaging. An MR venogram will also be ordered to further evalu ate for this. ASSESSMENT AND PLAN: This is a young male with a 1-day history of vague symptoms of left-sided faci al pain and numbness that has completely resolved and some also again ill-defined left-sided neck an d anterior chest soreness rather than pain and pressure. However, what seems to be more concerning is the patient's significantly elevated white blood cell count that at this point has no known etiol ogy. As I had indicated to Dr. Roach, the hospitalist, I think that the patient's presenting so-barbosa d neurologic symptoms are probably a minor part of his symptoms and what really needs to be looked i nto further would be his unexplained leukocytosis. The MRI studies of the brain will be ordered and any further recommendations from a neurosurgical perspective will be made. At this point, there is no acute neurosurgical intervention indicated. Dictated By: VELIA ODONNELL MD, SA/TAL Conf#: [id number] DID#: [id number]
--- NOTE | 2017-02-07 18:22 | PN ---
DATE: 02/07/2017 The patient remains neurologically intact. He does not have any more left-sided facial pain or numb ness. The patient has subsequently received the requested MRI of the brain sequences. The sequence s reveal diffusion restriction on the DWI sequences that makes the left retromastoid lesion most con sistent with an epidermoid, which is believed in general to be a completely benign mass. This lesio n is extra-axial in nature and does not cause any significant mass effect in the posterior fossa. T his lesion appears to be completely incidental in nature and does not explain the patient's leukocyt osis. I have discussed these findings in great detail with the patient as well as with Dr. Roach, the hospitalist, and from a neurosurgery perspective, the patient can be discharged. I would recommend that the patient receive an MRI of the brain with and without contrast in about 6 months as a follo wup MRI just to followup on the size of the mass and any possible change in the mass. If the patien t develops any new neurologic symptoms, the patient is to return to the emergency department. Dictated By: VELIA ODONNELL MD, SA/TAL Conf#: [id number] DID#: [id number]
[2017-02-07] MEDS ORDERED: ATORVASTATIN 20 MG TAB PO SCH (21:00)
[2017-02-07 23:12] LABS: ALBUMIN 3.8 g/dL (3.8-4.8)
[2017-02-08 04:09] LABS: PROTEIN, TOTAL 6.4 g/dL (6.1-8.1)
--- NOTE | 2017-02-08 08:19 | DS ---
DATE OF ADMISSION: 02/05/2017 DATE OF DISCHARGE: 02/07/2017 PRESENTING COMPLAINT: Left-sided face and neck numbness. FINAL DIAGNOSES: 1. Systemic inflammatory response syndrome. This is secondary to amphetamine use. 2. Uncontrolled hypertension also secondary to amphetamine use. 3. Chest pain, acute coronary syndrome ruled out, also secondary to amphetamine use. 4. Incidental finding of a brain mass that was found after extensive imaging to be a benign epiderm oid cyst with malignant characteristics. 5. Sinusitis on treatment. 6. Amphetamine and marijuana use and abuse. 7. Hyperproteinemia, incidental. CONSULTS ON THE CASE: Dr. Hammad Nuñez for neurosurgery and Dr. Tu Parkinson for neurology. INTERVENTIONS/HOSPITALIZATION COURSE: This is a 36-year-old male who had presented to the emergency room with nonspecific symptoms of left face numbness for a year, left-sided chest pain, sweating pr ofusely. There was concern for an acute coronary syndrome, and he was admitted. He was also not sykes ve elevated blood pressure and mildly elevated temperature. The patient did not endorse amphetamine use upon initial arrival in the emergency room, and as such, ____ differentials that were worked up . He had a chest x-ray that showed no acute cardiopulmonary disease. He also had a CT scan of the brain that was concerning for a 1.4 x 1.5 cm ____ mass that actually looked benign but warranted fur ther intervention. He then had an MRI of the brain again that showed the same mass and eventually h ad an MRI venogram at the recommendation of the neurosurgeon that was more conclusive of a benign ep idermoid cyst for which routine imaging was recommended. He was also found to have a mild dyslipide wandy, and it was recommended that he control it with diet. By day 2 of his admission, just with IV f luids, the patient's symptoms had improved significantly. He had a mild rhabdomyolysis that also re solved. He was found to have sinusitis and based on that was started on oral antibiotics for 2 week s. As of today, he has done very well. I have spent extensive time counseling the patient on the n eed to quit abusing drugs as well as marijuana. The patient has a beautiful family; and 3 kids who obviously love him very much. I explained to him the dangers of continued methamphetamine usag e, not limited to severe ischemic cardiomyopathy which could lead to chronic heart failure and as well as symptoms like the ones he came in with, possible strokes even. This was done using the on demand interpreting service. The patient verbalized understanding and willingness to try to quit . I offered resources; however, he declined. He stated that this was a recreational thing for him and he did not think he would have any difficulties quitting. I did endorse that a lot of people fe el that way but end up needing help, but still he declined the offer of help. I did explain to him that he could always come back to us or give us a call for said resources or even have an outpatient meeting with the health and social care teacher to get resources if indicated. He verbalized understanding and agre ement with the plan. It is my opinion that the patient is stable for discharge at this time. DISPOSITION: To home with family. ACTIVITIES: As tolerated. RECOMMENDED DIET: Low cholesterol, low fat. DISCHARGE MEDICATIONS: 1. Augmentin 875 to complete a 2-week course. 2. Aspirin 81 daily. 3. Lisinopril 40 daily. Time spent overall on counseling and discharge planning has been more than 1 hour. Dictated By: TATA MARTÍNEZ MD BA/TAL Conf#: [id number] DID#: [id number]
[2017-02-10 22:58] LABS: ALBUMIN 3.8 g/dL (3.8-4.8)
== END 2017-02-07 14:00 | disposition home or self-care (01) | DRG 897 ==
LOC: E/R 16:17 → TEL 19:07
PROVIDERS: ADMIT Family Medicine; ATTEND Family Medicine
DX: F15.10 Other stimulant abuse, uncomplicated (principal); M62.82 Rhabdomyolysis; R65.10 Systemic inflammatory response syndrome (SIRS) of non-infectious origin without acute organ dysfunction; G45.9 Transient cerebral ischemic attack, unspecified; E88.09 Other disorders of plasma-protein metabolism, not elsewhere classified; F12.10 Cannabis abuse, uncomplicated; I10 Essential (primary) hypertension; R07.9 Chest pain, unspecified; J01.00 Acute maxillary sinusitis, unspecified; E78.5 Hyperlipidemia, unspecified; L72.8 Other follicular cysts of the skin and subcutaneous tissue; F17.210 Nicotine dependence, cigarettes, uncomplicated; E86.0 Dehydration; Z79.82 Long term (current) use of aspirin
CPT/HCPCS: 36415; 70450; 70552; 70553; 71010; 80048; 80053; 80061; 80307; 81001; 81003; 82550; 82553; 83605; 84155; 84165; 84436; 84443; 84479; 84484; 85025; 85610; 85730; 87040; 87086; 93005; 96365; 96366; 96367; 96375; J0696; J1650; J3370; J7030